=== PATIENT | male | born 1940 | race Caucasian/White ===

== ENCOUNTER → 2018-02-17 08:23 | Outpatient (CLI) | payer MEDICARE, MEDICAID, SELFPAY ==
--- NOTE | 2018-02-17 08:32 | CT_ITS ---
CT chest w con HISTORY: ITS.REASON: ELEVATED LIVER ENZYMES, WGT LOSS, COPD ORDERING PHYSICIAN: Carter Zafar MD PATIENT AGE: 78 years TECHNIQUE: Axial images obtained following the administration of 75 mL of Isovue 370 . Sagittal, and coronal reformatted images are also generated and reviewed. All CT scans at the facility use one or more dose reduction, viz: automated exposure control; ma/kV adjustment per patient size (including targeted exams where dose is matched to indication; i.e. head); or iterative reconstruction technique. FINDINGS: No evidence of aortic aneurysm or dissection. No mediastinal or hilar mass. Normal heart size. No evidence of central pulmonary embolus. Coronary artery calcifications are present. There are centrilobular emphysematous changes with COPD. There is a noncalcified 12 mm nodule in the central aspect of the right upper lobe. The margins are fairly well-circumscribed. There is a spiculated lesion in the right lower lobe posterior laterally at 19 mm suspicious for neoplasm. Postinflammatory scarring could have a similar appearance. No effusions or infiltrates. Please see abdomen report for upper abdomen description which includes multiple liver lesions, lytic lesion of L1, enlarged left retroperitoneal mass IMPRESSION: 1. Centrilobular emphysema/COPD 2. 12 mm right upper lobe nodule which is well-circumscribed and an irregular 19 mm nodule in the right lower lobe. The patient has evidence of metastatic disease on the abdomen CT. The right upper lobe nodule could represent a metastatic focus in the right lower lobe nodule could represent a primary lung cancer.
--- NOTE | 2018-02-17 08:32 | CT_ITS ---
CT abdomen pelvis w con CLINICAL INDICATION: ITS.REASON: ELEVATED LIVER ENZYMES, WGT LOSS, COPD ORDERING PHYSICIAN: Carter Zafar MD PATIENT AGE: 78 years COMPARISON: 03/13/2015 TECHNIQUE: Axial images obtained with sagittal and coronal reformats. All CT scans at the facility use one or more dose reduction, viz: automated exposure control; ma/kV adjustment per patient size (including targeted exams where dose is matched to indication; i.e. head); or iterative reconstruction technique. PROCEDURE: Oral Contrast: None IV Contrast: 75 mL's of Isovue-370 performed in conjunction with chest CT. FINDINGS: There are in numerable hypodense lesions of the liver consistent with diffuse hepatic metastasis. There is mild enlargement of the liver measuring 23 cm cephalad to caudad. No obvious gallstones. Spleen and pancreas are unremarkable There is a large left renal mass measuring up to 12 cm transverse, 11 cm cephalad to caudad, and 9 cm AP. This extends medially and involves the paraspinal region on the left and abuts the medial aspect of the descending aorta. This abuts the posterior aspect of the tail the pancreas and extends to the midline anterior to the aorta and superiorly. Left adrenal gland has an unremarkable appearance. There are some cystic changes within this mass. There is some mild inferior extension of the mass along the anterior medial aspect of the psoas muscle and anterior to the left common iliac vessel. Cortical cyst is present involving the right kidney anteriorly measuring 2 cm. There is focal dilatation involving the lower abdominal aorta at 3.6 cm. There is aneurysmal dilatation of the left common iliac artery distally measuring up to 3 cm. There is an old right acetabular roof fracture with mild acetabular protrusio. There is mild lumbar scoliosis convex right. There is an somewhat ill-defined lytic lesion involving the L1 vertebral body with minimal wedging of L1 anteriorly by approximately 10%. No retropulsed fragments evident. IMPRESSION: 1. Large left retroperitoneal mass which appears to be originating from the left kidney with extension medially into the paraspinal region and slightly superiorly and inferiorly as well consistent with renal cell carcinoma. 2. Innumerable hepatic lesions consistent with metastatic disease. 3. Metastatic lesion of L1 vertebral body with mild wedging. 4. Fusiform infrarenal abdominal aortic aneurysm at 3.6 cm. 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
--- NOTE | 2018-02-17 09:44 | [facility].ITSHM ---
ADVAIR,AUGMENTIN,CALCIUM,FINASTERIDE,NAMENDA,PROTONIX,SPRIRIVA,TAMULOSIN, ASPIRIN, TYLENOL
== END ==
PROVIDERS: PCP Internal Medicine Adolescent Medicine; Visit Provider Internal Medicine Adolescent Medicine
DX: R94.5 Abnormal results of liver function studies (principal); R63.4 Abnormal weight loss; J44.9 Chronic obstructive pulmonary disease, unspecified
CPT/HCPCS: 71260; 74177; Q9967